=== PATIENT | female | born 1970 | race Caucasian/White ===

== ENCOUNTER → 2023-11-12 | Outpatient (CLI) | payer MEDICARE | LOC: RAD 14:17 | DX: R20.0 Anesthesia of skin (principal) ==

== ENCOUNTER → 2024-01-27 | Outpatient (CLI) | payer MEDICARE | LOC: AMSURD 13:56 | DX: R55 Syncope and collapse (principal) ==

== ENCOUNTER → 2024-06-09 | Outpatient (CLI) | payer MEDICARE ==
[2024-06-15 05:39] LABS: TOTAL PROTEIN (IEP) 7.1 g/dL (6.0-8.5)
== END ==
LOC: LAB 14:29
PROVIDERS: Family Medicine
DX: R20.2 Paresthesia of skin (principal)

== ENCOUNTER → 2024-08-31 | Outpatient (CLI) | payer MEDICARE | LOC: LAB 16:14 | DX: Z51.81 Encounter for therapeutic drug level monitoring (principal) ==